=== PATIENT | female | born 1990 ===

== ENCOUNTER 2018-07-25 11:24 | Outpatient (CLI) | payer OTHER | END 2018-07-25 11:25 | disposition home or self-care (01) | LOC: C.USIC 11:24 ==

== ENCOUNTER 2018-08-23 09:28 | Outpatient (CLI) | payer OTHER | END 2018-08-23 09:29 | disposition home or self-care (01) | LOC: C.SPRAD 09:28 | DX: N63.20 Unspecified lump in the left breast, unspecified quadrant (principal) ==